=== PATIENT | female | born 1990 | race Caucasian/White ===

== ENCOUNTER 2019-09-10 16:49 | Emergency (ER) | payer BC ==
[~2019-09-10] VITALS: Ht 157.5 cm; Wt 77.1 kg
[2019-09-10 16:55] VITALS: BP_SYST 120
--- NOTE | 2019-09-10 17:10 | NUR ---
Aniceto Palafox doing MSE at [facility]
--- NOTE | 2019-09-10 17:12 | NUR ---
Pt brought by self,A&Ox4, pt presents to ER with skin rash on perez upper extremities for one month, pt states she is 7 weeks , afebrile, skin pink and warm, cap refill <3
--- NOTE | 2019-09-10 17:29 | NUR ---
Patient given written and verbal discharge instructions and verbalizes understanding. ER MD discussed with patient the results and treatment provided. Patient in stable condition. ID arm band removed. Rx of Permethrin, Cortizone, and Clotrimazole given. Patient educated on pain management and to follow up with PMD. Pain Scale 0/10. Opportunity for questions provided and answered. Medication side effect fact sheet provided.
== END 2019-09-10 17:29 | disposition home or self-care (01) ==
LOC: SED 16:49
DX: R21 Rash and other nonspecific skin eruption (principal)
CPT/HCPCS: 81025; 99282

== ENCOUNTER 2020-10-19 08:24 | Emergency (ER) | payer BC, SELFPAY ==
[~2020-10-19] VITALS: Ht 157.5 cm; Wt 68.0 kg
[2020-10-19 08:25] VITALS: BP_SYST 110
--- NOTE | 2020-10-19 08:25 | NUR ---
BROUGHT INTO BROWN TENT AND TRIAGED. WILL ASSUME CARE
--- NOTE | 2020-10-19 08:25 | NUR ---
DR RANDOLPH OUT TO EVALUATE PT IN TENT
[2020-10-19 08:45] VITALS: BP_SYST 110
--- NOTE | 2020-10-19 08:47 | NUR ---
Patient given written and verbal discharge instructions and verbalizes understanding. ER MD discussed with patient the results and treatment provided. Patient in stable condition. ID arm band removed. No Rx given. Patient educated on pain management and to follow up with PMD. Pain Scale 0/10. Opportunity for questions provided and answered. Medication side effect fact sheet provided.
== END 2020-10-19 08:47 | disposition home or self-care (01) ==
LOC: SED 08:24
DX: B34.9 Viral infection, unspecified (principal); R63.0 Anorexia; M79.18 Myalgia, other site; Z20.828 Contact with and (suspected) exposure to other viral communicable diseases
CPT/HCPCS: 99283; U0003